=== PATIENT | male | born 1975 | race Caucasian/White ===

== ENCOUNTER 2018-05-11 15:44 | Outpatient (CLI) | payer BC ==
--- NOTE | 2018-05-11 17:10 | RAD ---
LUMBAR SPINE 2 VIEWS: HISTORY: Sacral pain, history of fracture, back pain. FINDINGS/IMPRESSION: The vertebral body heights are maintained. No compression fracture or subluxation is seen in the lum bar spine. There is a questionable fracture involving the inferior aspect of the sacrum. POS: [facility]
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
== END 2018-05-11 15:45 | disposition home or self-care (01) ==
LOC: BICRAD 15:44
PROVIDERS: ATTEND Family Medicine
DX: M54.2 Cervicalgia (principal); M53.3 Sacrococcygeal disorders, not elsewhere classified; M47.812 Spondylosis without myelopathy or radiculopathy, cervical region
CPT/HCPCS: 72040; 72100

== ENCOUNTER 2018-06-15 17:00 | Outpatient (CLI) | payer BC | END 2018-06-15 17:01 | disposition home or self-care (01) | LOC: SLEEPLAB 17:00 | PROVIDERS: ATTEND Family Medicine | DX: G47.33 Obstructive sleep apnea (adult) (pediatric) (principal); F31.9 Bipolar disorder, unspecified; R51 Headache; R06.83 Snoring; F41.8 Other specified anxiety disorders; G47.00 Insomnia, unspecified | CPT/HCPCS: 95806 ==

== ENCOUNTER 2018-08-14 13:37 | Outpatient (CLI) | payer BC ==
--- NOTE | 2018-08-15 14:21 | CT ---
CT SINUSES: Date: 08/14/18 Multiple axial tomograms obtained through sinuses with multiplanar reconstructions. INDICATION: Recurrent sinusitis. FINDINGS: The frontal air cells are well aerated and clear. No significant mucosal edema. There is single opacification of a mid right ethmoid air cell. The other ethmoid air cells are well a erated and clear. There are mucus retention cysts seen at the floor of both maxillary antra. The mucus retention cysts on both sides measures approximately 2.0 cm. The upper maxillary sinuses are aerated. There is mucosal edema, producing mild narrowing of the infu ndibula bilaterally. There is almost complete opacification of the right sphenoid sinus. The left sphenoid air cell is aer ated. Mild septal deviation to the left. IMPRESSION: Moderate paranasal sinus mucosal disease. Mucus retention cysts are seen in the floor of both maxilla ry antra. There is mild narrowing of infundibula due to mucosal edema. Mucosal opacification of the r ight sphenoid sinus and a single right mid ethmoid air cell. POS: [facility]
--- NOTE | 2018-08-17 12:03 | CT ---
TEMPORAL BONE CT: HISTORY: Bilateral tinnitus. FINDINGS: High-resolution axial images are obtained with coronal and sagittal reconstructions. There is severe right sphenoid sinus mucosal thickening. Bilateral maxillary sinus mucus retention cy st seen. The ethmoid sinuses are well aerated. Mastoid air cells are bilaterally well aerated. The right and left external auditory canals are patent. The right and left internal auditory canals, cochlea, vestibule and semicircular canals bilaterally a re unremarkable. There appears to be bilateral thickening of the tympanic membranes. There appears to be some soft tis fanta debris in the right meso and hypotympanum laterally. This may represent some residual scarring in the right middle ear. There is some thickening also seen in the left tympanic membrane. Portions o f the right and left tympanic membrane are not definitively visualized possibly representing a normal thin tympanic membrane versus tympanic membrane perforations. Correlate with direct visualizat ion. No other significant middle ear abnormality seen. The middle ear ossicles bilaterally are intact. IMPRESSION: Bilateral tympanic membrane thickening with areas of scarring, more prominent on the right than on th e left. Transcribed Date/Time: 08/17/2018 1:00 PM
== END 2018-08-14 13:38 | disposition home or self-care (01) ==
LOC: BICCT 13:37
PROVIDERS: ATTEND Otolaryngology Otology & Neurotology
DX: J01.91 Acute recurrent sinusitis, unspecified (principal); H93.13 Tinnitus, bilateral; H73.893 Other specified disorders of tympanic membrane, bilateral; J34.1 Cyst and mucocele of nose and nasal sinus; Q24.3 Pulmonary infundibular stenosis; J34.89 Other specified disorders of nose and nasal sinuses
CPT/HCPCS: 70480

== ENCOUNTER 2018-09-10 08:05 | Day surgery (SDC) | payer BC ==
[2018-09-09 16:02] VITALS: BMI 29.9
[2018-09-10] MEDS ORDERED: Oxymetazoline HCl 0.05% ( 15 ML ) ONE (08:32)
[2018-09-10] MEDS ORDERED: Lidocaine 1% w/Epinephrine 1:100K 20 ML VIAL ONE (10:09)
[2018-09-10] MEDS ORDERED: EPINEPHrine 1 MG/ML AMP ONE (10:09)
[2018-09-10] MEDS ORDERED: Bacitracin Zinc Ointment 30 gm TUBE ONE (10:09)
[2018-09-10] MEDS ORDERED: Midazolam HCl 2 mg/2 ml Vial ONE (10:17)
[2018-09-10] MEDS ORDERED: Fentanyl 100 MCG/2 ML VIAL ONE ×2 (10:17→11:06)
--- NOTE | 2018-09-10 12:45 | OP ---
DATE OF PROCEDURE: 09/10/2018 PREOPERATIVE DIAGNOSES: Chronic sinusitis, deviated septum, hypertrophied inferior turbinates, pansinusitis. POSTOPERATIVE DIAGNOSES: Chronic sinusitis, deviated septum, hypertrophied inferior turbinates, pansinusitis. PROCEDURE PERFORMED: 1. Bilateral nasal endoscopy with maxillary antrostomy. 2. Bilateral nasal endoscopy with total ethmoidectomy. 3. Bilateral nasal endoscopy with frontal sinusotomy. 4. Bilateral nasal endoscopy with sphenoidotomy and septoplasty. 5. Bilateral nasal endoscopy with submucosal resection of inferior turbinates. DESCRIPTION OF PROCEDURE: Bilateral nasal endoscopy with maxillary antrostomy: The uncinate was then identified and the extent of the uncinate was appreciated by out-fracturing the uncinate with the ball-tip probe. We then used the sickle blade to disarticulate the uncinate from the lateral nasal wall. This was then removed with straight biting and upbiting punches with the remaining shrouds of mucosa and bony septum removed with the micro-debrider. The natural os of the maxillary sinus was then identified and enlarged with the maxillary punches and back biting forceps. Bilateral nasal endoscopy with total ethmoidectomy: The anterior face of the ethmoid bulla was entered and with the micro-debrider, dissection continued posteriorly to the ground lamella. The limits of dissection included the insertion of the middle turbinate, medial orbital wall, and base of skull. We similarly identified the frontal recess and removed shrouds of bone and debris in that region to obtain patency into the agger nasi region and frontal recess. We then entered the ground lamella and its anteroinferior aspect and proceeded posteriorly, opening the posterior ethmoid air-cell system. Again, the limits of dissection included the base of skull and medial orbital wall. Bilateral nasal endoscopy with frontal sinusotomy: Following the ethmoidectomy, we then turned our attention to the frontal nasal recess. The agger nasi cells were addressed and the frontal recess was exposed. The natural opening to the frontal sinus was identified. At this point, any obstructing shrouds of mucosa and bony fragments were removed with a curved microdebrider. The wound was then examined and found to be free of any obstructing debris. We then turned our attention to the contralateral side and performed a similar procedure again under endoscopic visualization using a 45-degree scope. We were able to visualize the frontal recess. Obstructing shrouds of mucosa and bone were removed with a microdebrider. The natural os of frontal sinus was identified and enlarged and irrigated. At this point, the frontal sinusotomy was completed and we turned to the next area of concern. Sphenoidotomy: The anterior face of the sphenoid was identified and entered in its extreme anteroinferior aspect. A sphenoid punch was then used to enlarge the sphenoidotomy and no injury to the optic nerve or internal carotid artery occurred. Septoplasty: After local anesthesia was infiltrated into the submucoperichondrial plane, a standard Nuno incision was made with a #15 blade down to the level of the septal cartilage. The caudal elevator was used to elevate the mucoperichondrium from the underlying cartilage. We then proceeded beyond the bony cartilaginous junction and elevated the bony periosteum as well. Great attention was paid to the spur to prevent rent formation in the septal flap. A transcartilaginous incision was then made, while preserving an adequate dorsal and caudal cartilaginous strut for tip support. The deformed cartilage was removed and disarticulated from the bony cartilaginous junction and maxillary crest. This was placed in saline and would later be crushed and returned to the mucoperichondrial envelope. We then elevated the contralateral periosteum from the bony cartilaginous region and removed the deformed portions of the bone and bony spurs. The cartilage was then crushed and placed back into the mucoperichondrial envelope and the mucosa was re-approximated with a quilting stitch composed of rapidly absorbent gut suture. The Nuno incision was also closed with interrupted gut suture. At the completion of the case, Valente splints were placed and suture secured to the caudal septum. Bilateral nasal endoscopy with submucosal resection of inferior turbinates: After consent was obtained, the patient was identified, brought to the operating room, and placed on the operating room table in the supine position. Consent was obtained, notifying the patient of the possibility of additional infections, bleeding, brain injury, and eye/orbital injury. The patient was placed on the operating room table, and general endotracheal anesthesia and intravenous access was obtained. The patient was then positioned, prepped and draped for endoscopic sinus surgery. Nasal preparation included trimming nasal vestibular hairs and spraying in topical Afrin. We then placed Afrin topical solution on nasal pledgets and strategically located them intranasally. The perinasal mucosa was injected with 1% lidocaine with 1:100,000 epinephrine in the submucoperichondrial plane of the septum, lateral nasal wall, and anterior to the uncinate. The patient was then prepped and draped in a sterile fashion and positioned for endoscopic sinus surgery. With the 0-degree endoscope, the patient underwent systematic nasal endoscopy. There were no suspicious internasal masses or lesions identified. We then focused our attention to the osteomeatal complex region under the middle turbinate. The inferior turbinates were visualized with a 0 degree endoscope and outfractured with a [place] elevator. The inferior medial aspect was cauterized with the electrocautery. Hemostasis was obtained . After adequate airway was established, we turned our attention to the contralateral side and used a similar procedure. Again, a [place] elevator was used to outfracture inferior turbinates under endoscopic visualization. With a suction cautery, the free inferior medial aspect was cauterized under direct visualization along the length of the inferior turbinate. At this point, we then turned our attention to the contralateral side and proceeded with endoscopic sinus surgery. At the completion of the case, Rice keel splints were placed in the ethmoid cavities after the ethmoidectomy. There were no complications. The patient tolerated the procedure well and was discharged to the recovery room in stable condition prior to return to the preoperative day stay with ultimate discharge home. Prescriptions for pain medication and antibiotics were provided. The patient received intramuscular Depo-Medrol during the case. Job ID: [id number]
[2018-09-10] MEDS ORDERED: Morphine 2 MG/ML SYRINGE ONE ×2 (12:57→13:19)
[2018-09-10] MEDS ORDERED: HYDROcodone/Acetaminophen 5/325 mg Tablet ONE (13:27)
--- NOTE | 2018-09-12 13:45 | EKG ---
Test Reason : PREOP Blood Pressure : / mmHG Vent. Rate : 075 BPM Atrial Rate : 075 BPM P-R Int : 140 ms QRS Dur : 088 ms QT Int : 364 ms P-R-T Axes : 047 074 025 degrees QTc Int : 406 ms Normal sinus rhythm Normal ECG No previous ECGs available Confirmed by DR. Stephanie LATIF ([id number]) on 09/12/2018 1:45:13 PM Referred By: NORA Confirmed By:DR. Stephanie LATIF
== END 2018-09-10 14:55 | disposition home or self-care (01) ==
LOC: SDC 08:05
PROVIDERS: ATTEND Specialist
PROC: 099U8ZZ Drainage of Right Ethmoid Sinus, Via Natural or Artificial Opening Endoscopic (ICD-10-PCS; principal; 2018-09-10)
PROC: 099Q8ZZ Drainage of Right Maxillary Sinus, Via Natural or Artificial Opening Endoscopic (ICD-10-PCS; principal; 2018-09-10)
PROC: 099S8ZZ Drainage of Right Frontal Sinus, Via Natural or Artificial Opening Endoscopic (ICD-10-PCS; principal; 2018-09-10)
PROC: 099V8ZZ Drainage of Left Ethmoid Sinus, Via Natural or Artificial Opening Endoscopic (ICD-10-PCS; principal; 2018-09-10)
PROC: 099X8ZZ Drainage of Left Sphenoid Sinus, Via Natural or Artificial Opening Endoscopic (ICD-10-PCS; principal; 2018-09-10)
PROC: 09SM0ZZ Reposition Nasal Septum, Open Approach (ICD-10-PCS; principal; 2018-09-10)
PROC: 099T8ZZ Drainage of Left Frontal Sinus, Via Natural or Artificial Opening Endoscopic (ICD-10-PCS; principal; 2018-09-10)
PROC: 099R8ZZ Drainage of Left Maxillary Sinus, Via Natural or Artificial Opening Endoscopic (ICD-10-PCS; principal; 2018-09-10)
PROC: 099W8ZZ Drainage of Right Sphenoid Sinus, Via Natural or Artificial Opening Endoscopic (ICD-10-PCS; principal; 2018-09-10)
PROC: 09TL8ZZ Resection of Nasal Turbinate, Via Natural or Artificial Opening Endoscopic (ICD-10-PCS; principal; 2018-09-10)
DX: J32.4 Chronic pansinusitis (principal); J34.2 Deviated nasal septum; J34.3 Hypertrophy of nasal turbinates; J33.9 Nasal polyp, unspecified; F32.9 Major depressive disorder, single episode, unspecified; F41.9 Anxiety disorder, unspecified; Z87.891 Personal history of nicotine dependence; Z79.899 Other long term (current) drug therapy
CPT/HCPCS: 93005; 93010; J0171; J2001; J2250; J2270; J3010

== ENCOUNTER 2018-12-30 03:38 | Emergency (ER) | payer BC | END 2018-12-30 04:09 | disposition home or self-care (01) | LOC: ERS 03:38 | DX: H60.91 Unspecified otitis externa, right ear (principal); F41.9 Anxiety disorder, unspecified; F31.9 Bipolar disorder, unspecified; Z87.891 Personal history of nicotine dependence | CPT/HCPCS: 99282 ==

== ENCOUNTER 2019-09-17 07:33 | Outpatient (CLI) | payer BC ==
--- NOTE | 2019-09-17 08:37 | MRI ---
MRI cervical spine noncontrast HISTORY: Neck pain with left arm radiculopathy. FINDINGS: Reversal of the normal lordotic curvature of the lower cervical spine is unchanged in [facility]bin [facility] from the radiographs 05/11/2018. C2-3: Osteophytosis of the facets. Mild to moderate stenosis of the left neural foramen. Central aram l and right neural foramen are patent. C3-4: Minimal posterior osteophyte/disc complex. Posterior and uncovertebral osteophytosis. Central c anal is patent. Severe right and mild to moderate left foraminal stenoses. C4-5: Mild posterior osteophyte/disc complex. Prominent osteophytosis. Central canal is patent. Mild right and mild to moderate left foraminal stenoses. C5-6: Small left posterolateral disc protrusion compressing the left nerve root within the foramen. P osterior osteophyte/disc complex and circumferential degenerative changes. Moderate stenosis of the central canal and right neural foramen. Small Tarlov cyst associated with the right nerve root is jerrod arent. C6-7: Disc space narrowing, kyphotic angulation, and discogenic endplate changes are most pronounced at this level. Prominent posterior osteophyte/disc complex, flattening the ventral aspect of the spinal cord by approximately 30%. No abnormal signal is evident within the cord. Prominent osseous hy pertrophy of the facets and uncovertebral processes. There is severe stenosis of the central canal and each neural foramen. C7-T1: Central canal is patent. Osteophytosis of the uncovertebral processes and facets. Moderate rig ht and mild left foraminal stenoses. Small Tarlov cysts bilaterally. IMPRESSION : Left posterolateral disc protrusion at the C5-6 level, compressing the left nerve root within the janae ral foramen. Clinical correlation regarding the left C6 dermatome is required. Multilevel degenerative changes. Central canal and foraminal stenoses greatest at the C6-7 level. No evidence of myelomalacia.
== END 2019-09-17 07:34 | disposition home or self-care (01) ==
LOC: TBSIIMAG 07:33
PROVIDERS: ATTEND Family Medicine
DX: M47.22 Other spondylosis with radiculopathy, cervical region (principal); M48.02 Spinal stenosis, cervical region; M50.122 Cervical disc disorder at C5-C6 level with radiculopathy
CPT/HCPCS: 72141